=== PATIENT | male | born 1990 | race Caucasian/White ===

== ENCOUNTER 2019-07-17 13:08 | Emergency (ER) | payer MEDICAID ==
[~2019-07-17] VITALS: Ht 172.7 cm; Wt 81.4 kg
[2019-07-17] MEDS ORDERED: AMOX1TAB16 PO (13:13)
[2019-07-17] MEDS ORDERED: HYDR50CA9 PO (13:13)
[2019-07-17] MEDS ORDERED: OMEP20 PO (13:13)
[2019-07-17] MEDS ORDERED: MIRT15 PO (13:13)
[2019-07-17] MEDS ORDERED: IBUPROFEN 400 MG TABLET PO ONE (14:00)
[2019-07-17] MEDS ORDERED: BENZOCAINE/MENTHOL LOZENGE PO ONE (14:00)
[2019-07-17 14:38] VITALS: BP 114/77
== END 2019-07-17 15:06 | disposition home or self-care (01) ==
LOC: EMS 13:15
DX: H92.02 Otalgia, left ear (principal); J45.909 Unspecified asthma, uncomplicated; F17.210 Nicotine dependence, cigarettes, uncomplicated; Z79.899 Other long term (current) drug therapy
CPT/HCPCS: 99406